=== PATIENT | male | born 1995 | race Caucasian/White ===

== ENCOUNTER → 2017-04-03 | Outpatient (REF) | payer OTHER | LOC: M LAB REF 09:30 | PROVIDERS: ATTEND Physician Assistant | DX: J02.9 Acute pharyngitis, unspecified (principal) ==

== ENCOUNTER 2017-07-22 02:46 | Emergency (ER) | payer OTHER ==
[~2017-07-22] VITALS: Ht 180.3 cm; Wt 80.5 kg
[2017-07-22 02:56] VITALS: BP 140/94
== END 2017-07-22 06:03 | disposition left against medical advice (07) ==
LOC: M ED 02:46
DX: Z53.21 Procedure and treatment not carried out due to patient leaving prior to being seen by health care provider (principal); R21 Rash and other nonspecific skin eruption

== ENCOUNTER → 2020-09-01 | Outpatient (CLI) | payer SELFPAY | LOC: M LABSMTC 13:54 | PROVIDERS: ATTEND Pediatrics | DX: Z20.828 Contact with and (suspected) exposure to other viral communicable diseases (principal) ==

== ENCOUNTER → 2020-09-05 | Outpatient (CLI) | payer SELFPAY | LOC: M LABSMTC 09:24 | PROVIDERS: ATTEND Pediatrics | DX: Z20.828 Contact with and (suspected) exposure to other viral communicable diseases (principal) ==

== ENCOUNTER → 2020-10-14 | Outpatient (CLI) | payer SELFPAY | LOC: M LABSMTC 11:09 | PROVIDERS: ATTEND Pediatrics | DX: Z20.822 Contact with and (suspected) exposure to COVID-19 (principal) ==

== ENCOUNTER → 2022-12-05 | Outpatient (CLI) | payer OTHER | LOC: M WUC 08:53 | PROVIDERS: ATTEND Physician Assistant | DX: M79.671 Pain in right foot (principal) ==